=== PATIENT | male | born 1945 | race Caucasian/White ===

== ENCOUNTER → 2021-03-04 | Outpatient (CLI) | payer BC ==
[~2021-03-04] MED LIST: LISI1TAB51 PO
== END | disposition home or self-care (01) ==
LOC: SHCH 15:19
PROVIDERS: ATTEND Student in an Organized Health Care Education/Training Program
DX: I08.1 Rheumatic disorders of both mitral and tricuspid valves (principal); I48.20 Chronic atrial fibrillation, unspecified; R06.02 Shortness of breath; R55 Syncope and collapse
CPT/HCPCS: 93306; 93356

== ENCOUNTER → 2022-03-30 | Outpatient (CLI) | payer BC, MEDICARE | END | disposition home or self-care (01) | LOC: SHCH 08:27 | PROVIDERS: ATTEND Student in an Organized Health Care Education/Training Program | DX: I11.0 Hypertensive heart disease with heart failure (principal); I50.9 Heart failure, unspecified; I08.8 Other rheumatic multiple valve diseases | CPT/HCPCS: 93306 ==

== ENCOUNTER → 2023-04-04 | Outpatient (CLI) | payer BC ==
[2023-04-04 12:29] LABS: CHOLESTEROL 147 mg/dL (<200); HDL CHOLESTEROL 58 mg/dL (29-71); LDL DIRECT 78 mg/dL (0-99); TRIGLYCERIDES 56 mg/dL (30-200)
== END | disposition home or self-care (01) ==
LOC: LAB 08:12
PROVIDERS: ATTEND Student in an Organized Health Care Education/Training Program
DX: E78.2 Mixed hyperlipidemia (principal)
CPT/HCPCS: 36415; 80061

== ENCOUNTER → 2023-08-26 | Outpatient (CLI) | payer BC | END | disposition home or self-care (01) | LOC: SHCH 08:56 | PROVIDERS: ATTEND Student in an Organized Health Care Education/Training Program | DX: I25.10 Atherosclerotic heart disease of native coronary artery without angina pectoris (principal); I50.9 Heart failure, unspecified; I25.9 Chronic ischemic heart disease, unspecified; I25.119 Atherosclerotic heart disease of native coronary artery with unspecified angina pectoris; R07.9 Chest pain, unspecified | CPT/HCPCS: 93306 ==

== ENCOUNTER → 2023-11-27 | Outpatient (CLI) | payer BC ==
[2023-11-27 12:21] LABS: BASOPHILS # (AUTO) 0.06 K/uL (0.00-0.20); BASOPHILS % (AUTO) 0.8 % (0.0-5.0); EOSINOPHILS # (AUTO) 0.29 K/uL (0.00-0.70); HEMATOCRIT 46.8 % (42-54); IMMATURE GRANULOCYTE ABSOLUTE 0.02 K/uL (0-1); LYMPHOCYTES # (AUTO) 0.9 K/uL (1.0-4.8); LYMPHOCYTES % (AUTO) 11.9 % (21.0-51.0); MEAN CORPUSCULAR HEMOGLOBIN 32.7 pg (27.0-33.0); MEAN CORPUSCULAR HGB CONC 32.5 g/dL (32.0-36.0); MEAN CORPUSCULAR VOLUME 100.6 fL (79-99); MONOCYTES # (AUTO) 0.8 K/uL (0.1-1.0); MONOCYTES % (AUTO) 11.2 % (3.0-13.0); NEUTROPHILS # (AUTO) 5.2 K/uL (1.8-7.7); NEUTROPHILS % (AUTO) 71.8 % (40.0-77.0); PLATELET COUNT (AUTO) 172 K/uL (130-400); RED BLOOD CELL COUNT(AUTO) 4.65 MIL/uL (4.50-6.20); RED CELL DISTRIBUTION WIDTH 13.4 % (11.0-15.5); WHITE BLOOD COUNT (AUTO) 7.3 K/uL (4.8-10.8)
[2023-11-27 12:29] LABS: HEMOGLOBIN A1C 5.4 % (4.0-6.0)
[2023-11-27 12:42] LABS: ALBUMIN 3.7 g/dL (3.5-5.0); BILIRUBIN,TOTAL 0.4 mg/dL (0.2-1.0); CREATININE 1.3 mg/dL (0.5-1.3); POTASSIUM 3.7 mmol/L (3.5-5.1); THYROID STIMULATING HORMONE 2.49 uIU/mL (0.36-3.74); TOTAL PROTEIN, SERUM 7.1 g/dL (6.0-8.3)
== END | disposition home or self-care (01) ==
LOC: LAB 08:33
PROVIDERS: ATTEND Student in an Organized Health Care Education/Training Program
DX: E78.2 Mixed hyperlipidemia (principal); I11.0 Hypertensive heart disease with heart failure; I50.23 Acute on chronic systolic (congestive) heart failure; I45.10 Unspecified right bundle-branch block
CPT/HCPCS: 36415; 80053; 80061; 83036; 84443; 85025

== ENCOUNTER → 2024-06-22 | Outpatient (CLI) | payer BC ==
--- NOTE | 2024-07-01 13:21 | HMCSR ---
APPROVED REPORT Laterality: Bilateral Indications r09.89 Doppler Spectral Velocity Analysis PSV / EDVPSV / EDV ECA (R) 78 / cm/sECA (L) 68 / cm/s dICA (R) 55 / 20 cm/sdICA (L) 37 / 16 cm/s Marianna (R) 42 / 13 cm/smICA (L) 52 / 20 cm/s pICA (R) 43 / 11 cm/spICA (L) 34 / 10 cm/s dCCA (R) 38 / 7 cm/sdCCA (L) 38 / 12 cm/s mCCA (R) 51 / 14 cm/smCCA (L) 55 / 13 cm/s pCCA (R) 41 / 13 cm/spCCA (L) 53 / 12 cm/s Vert (R) 50 / cm/sVert (L) 30 / cm/s Subl. (R) 119 / cm/sSubl. (L) 141 / cm/s ICA/CCA 1.08ICA/CCA 0.95 Technologist Impression Minimal to mild plaque noted in the bilateral carotids, without hemodynamic significance. Bilateral v ertebral arteries appear antegrade. Conclusion Minimal to mild plaque noted in the bilateral carotids, without hemodynamic significance. Bilateral v ertebral arteries appear antegrade. Conclusion Minimal to mild plaque noted in the bilateral carotids, without hemodynamic significance. Bilateral v ertebral arteries appear antegrade.
--- NOTE | 2024-07-01 13:22 | HMCSR ---
APPROVED REPORT Indications Rule Out AAA Duplex Results A/PTransverseLongitudinalVelocityWaveform Proximal Aorta 1.81cm2.08cm2.17cm53.80 cm/sec Mid Aorta 1.78cm2.20cm1.99cm84.60 cm/sec Distal Aorta 1.40cm1.62cm1.55is289.10 cm/sec Rt. Common Iliac Artery1.05cm1.36cm1.90uf926.10 cm/sec Lt. Common Iliac Artery 1.00cm1.10cm1.22cm90.70 cm/sec Techologist Impression The abdominal aorta and the right and left common iliac arteries are patent and normal in size withou t evidence of aneurysm; however, there is evidence of mild atherosclerotic disease. Multiphasic waveforms in the right and left DEAN and EIAs. Conclusion The abdominal aorta and the right and left common iliac arteries are patent and normal in size withou t evidence of aneurysm; however, there is evidence of mild atherosclerotic disease. Multiphasic waveforms in the right and left DEAN and EIAs. Conclusion The abdominal aorta and the right and left common iliac arteries are patent and normal in size withou t evidence of aneurysm; however, there is evidence of mild atherosclerotic disease. Multiphasic waveforms in the right and left DEAN and EIAs.
== END | disposition home or self-care (01) ==
LOC: SHCH 07:52
PROVIDERS: ATTEND Student in an Organized Health Care Education/Training Program
DX: I71.40 Abdominal aortic aneurysm, without rupture, unspecified (principal); R09.89 Other specified symptoms and signs involving the circulatory and respiratory systems
CPT/HCPCS: 93880; 93978